=== PATIENT | male | born 1980 | race Caucasian/White ===

== ENCOUNTER 2017-03-29 08:54 | Emergency (ER) | payer MEDICAID ==
[~2017-03-29] VITALS: Ht 170.2 cm; Wt 84.1 kg
[2017-03-29 09:24] VITALS: BP 141/83
[2017-03-29] MEDS ORDERED: IBUPROFEN 800 MG TABLET PO ONE (09:30)
== END 2017-03-29 10:17 | disposition home or self-care (01) ==
LOC: EMS 08:56
DX: S63.502A Unspecified sprain of left wrist, initial encounter (principal); R03.0 Elevated blood-pressure reading, without diagnosis of hypertension; F17.210 Nicotine dependence, cigarettes, uncomplicated; V29.9XXA Motorcycle rider (driver) (passenger) injured in unspecified traffic accident, initial encounter; Y93.55 Activity, bike riding; Y92.89 Other specified places as the place of occurrence of the external cause; Y99.8 Other external cause status
CPT/HCPCS: 99284